=== PATIENT | female | born 1995 | race Caucasian/White ===

== ENCOUNTER 2017-06-02 07:24 | Emergency (ER) | payer BC ==
[2017-06-02 07:46] VITALS: BP 126/82
[2017-06-02] MEDS ORDERED: Acetaminophen TAB* 325 MG PO ONE (08:21)
[2017-06-02] MEDS ORDERED: Lidocaine 2% VISCOUS* 15 ML UDC PO ONE (08:21)
--- NOTE | 2017-06-02 08:28 | UC ---
Jose Mccarthy Jennifer, scribed for Yvonne Reza MD on 06/02/17 at 0806 . General HPI - HPI Summary HPI Summary: The patient is a 21 year old female who presents with mouth sores to her gums, lips, and tongue, fever, and ear pain that began in the past few days. The patient has been having respiratory issues and sore throat in the past week with a history of asthma. The patient reports that four days ago she was coughing so bad she couldnt breath and her chest felt tight. She visited [facility] and received oral dexamethasone, a nebulizer treatment, and 10 day course of augmentin. She felt better after the treatment but has had fevers as high as 102.8. She has been taking 600-800 mg of Ibuprofen every 4-6 hours for a few days but has been unable to get her temperature below 99 for more than 24 hours. No antipyretic today. Today, she states her chief complaint has been painful mouth sores all throughout her mouth and ear pain. Pt with a h/o cold sores. Pt states breathing and lungs feels better. The patient additionally complains of a decreased appetite. She last took augmentin today, Nyquil last night, and Flonase two times every day but not this morning. Patient's medications reviewed this visit. - History of Current Complaint Chief Complaint: GI Stated Complaint: FEVER MOUTH SORES CHILLS Time Seen by Provider: 06/02/17 07:32 Hx Obtained From: Patient Hx Last Menstrual Period: iud Onset/Duration: Sudden Onset, Lasting Weeks - one week, Still Present, Worse Since - 2-3 days Timing: Constant Onset Severity: Moderate Current Severity: Moderate Pain Intensity: 8 Associated Signs & Symptoms: Positive: Other - Mouth sores to gums, lips, tongue ; fever; ear pain; decreased appetite; cough - Allergy/Home Medications Allergies/Adverse Reactions: Allergies Allergy/AdvReac Type Severity Reaction Status Date / Time azithromycin [From Zithromax] Allergy Rash Verified 06/02/17 07:47 iodine Allergy Rash Verified 06/02/17 07:47 latex Allergy Rash Verified 06/02/17 07:47 Home Medications: Home Medications Albuterol 2.5MG/3ML (0.083%)* [Ventolin 2.5 MG/3 ML NEB.SUSIE*] 2.5 mg INH Q4H [History Confirmed 06/02/17] D-Methorphan/PE/Acetaminophen [Daytime Cold Multi-Symp Gelcap] 1 each PO [History] Dextromethorphn/Acetaminoph/Cp [Vicks Nyquil Cold & Flu N] 1 liq PO 06/02/17 [ History] PMH/Surg Hx/FS Hx/Imm Hx - Additional Past Medical History Additional PMH: Cold sores Previously Healthy: Yes - NEG: HTN, DM Respiratory History: Asthma - Surgical History Surgical History: Yes Surgery Procedure, Year, and Place: hand and knee - Family History Known Family History: Positive: Other - Ovarian CA, Breast CA - Social History 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 Lives: With Family Alcohol Use: Occasionally Substance Use Type: None Smoking Status (MU): Never Smoked Tobacco - Immunization History Most Recent Influenza Vaccination: 2012 Most Recent Tetanus Shot: 2006 Most Recent Pneumonia Vaccination: 1997 Review of Systems Constitutional: Fever ENT: Sore Throat, Ear Ache, Other - Mouth sores to gums, lips, and tongue Respiratory: Cough All Other Systems Reviewed And Are Negative: Yes Physical Exam Triage Information Reviewed: Yes Appearance: Well-Appearing, No Pain Distress, Well-Nourished Vital Signs: Initial Vital Signs Temp 100.9 F 06/02/17 07:37 Pulse 120 06/02/17 07:37 Resp 18 06/02/17 07:37 BP 126/82 06/02/17 07:37 Pulse Ox 98 06/02/17 07:37 Vital Signs Reviewed: Yes Eye Exam: Normal Eyes: Positive: Conjunctiva Clear ENT: Positive: Other - right TM + fluid, no erythema left TM wnl turbinates inflammed and boggy + PND no exudate, erythema uvula midline Pt with multiple ulcerative lesions on tongue, buccal membrane and under tongue. No lesions noted udner tongue or on palate Dental Exam: Normal Neck exam: Normal Neck: Positive: Supple, Nontender, No Lymphadenopathy Respiratory Exam: Normal Respiratory: Positive: Chest non-tender, Lungs clear, Normal breath sounds, No respiratory distress Cardiovascular Exam: Normal Cardiovascular: Positive: RRR, No Murmur, Pulses Normal Abdominal Exam: Normal Abdomen Description: Positive: Nontender, No Organomegaly, Soft Bowel Sounds: Positive: Present Musculoskeletal Exam: Normal Neurological Exam: Normal Neurological: Positive: Alert Psychological Exam: Normal Psychological: Positive: Normal Response To Family Skin Exam: Normal Course/Dx - Course Course Of Treatment: pt with 5 days progressive sinus congestion, cough, pnd and ear pain. pt with 3 days oral ulcer. Pt with low grade fever without antipyretic today. pt is on Amoxicillin and flonase. has nebulizer. secretion precaution. + improvement with viscous lidocaine. reviewed motrin/ apap. work note. hydrate. cold. secretion precaution. pt comfortable and in agreement with plan - Differential Dx - Multi-Symptom Provider Diagnoses: gingivostomatitis. serous otitis media Discharge - Discharge Plan Condition: Stable Disposition: HOME Prescriptions: Lidocaine 2% VISCOUS* [Xylocaine 2% Viscous*] 15 ml SWISH SPIT Q4H PRN #1 btl PRN Reason: mouth pain Patient Education Materials: Serous Otitis Media (ED), Gingivostomatitis (ED) Forms: *Work Release Referrals: [facility] [place] PHYSICIAN REFERRAL [Outside] No Primary Care Phys,NOPCP [Primary Care Provider] - Additional Instructions: - Stay well hydrated. Drink plenty of non-alcoholic, non-caffinated beverages. - Alternate ibuprofen (Advil, Motrin) 600mg and Tylenol 1000mg every 3 hours for pain or fever. Take with food. Do NOT take for more than 4-5 days. -cold foods (popsicle, jello, apple sauce) may be soothing to your throat - Okay to swish and spit numbing medication as prescribed - okay to gargle and spit with warm salt water, 2-3 times a day - Use you nebulizer or Albuterol every 6 hours today and tomorrow, then every 6 hours as needed - complete the course of antibiotics as prescribed until gone - These infections are spread by secretions - do NOT share eating or drinking utensils - clean items you share with other people such as cell phones, computer mouse, TV remote, computer tablets, etc. once your mouth wounds heal, change your toothbrush and your pillowcase. - use flonse nasal spray as prescribed - get plenty of restful sleep - humidify the air in the room where you sleep - boil water, run a hot steam shower, vaporizer, cups of water by heat register - okay to take over the counter decongestant and cough medication - claritin-D, Kellen-D, Gianni-D - contact your doctor, return here or go to the emergency department with questions or concerns. You have been given information for the the provider referral service. If you need a primary care provider, this office can assist you with establishing one. The documentation as recorded by the Jose díaz Jennifer accurately reflects the service I personally performed and the decisions made by me, Yvonne Reza MD.
== END 2017-06-02 08:47 | disposition home or self-care (01) ==
LOC: UCEAST 07:24
DX: K05.10 Chronic gingivitis, plaque induced (principal); H65.90 Unspecified nonsuppurative otitis media, unspecified ear; Z88.3 Allergy status to other anti-infective agents; Z88.8 Allergy status to other drugs, medicaments and biological substances
CPT/HCPCS: 99212; A9270-GY; G0463

== ENCOUNTER 2017-07-09 15:36 | Emergency (ER) | payer BC ==
[2017-07-09 15:52] VITALS: BP 112/65
--- NOTE | 2017-07-09 16:13 | UC ---
Throat Pain/Nasal Feliciano HPI - HPI Summary HPI Summary: Patient has 5 days of worsening sinus pain. She is long history of sinusitis she's been using her Flonase her second generation antihistamine decongestant and symptoms are getting worse. - History of Current Complaint Chief Complaint: UCGeneralIllness Stated Complaint: SINUS CONGESTION Time Seen by Provider: 07/09/17 15:59 Hx Obtained From: Patient Hx Last Menstrual Period: iud ?: No Onset/Duration: Sudden Onset, Lasting Days - 5 Severity: Severe Pain Intensity: 8 Pain Scale Used: 0-10 Numeric Cough: None Associated Signs & Symptoms: Positive: Sinus Discomfort - Allergies/Home Medications Allergies/Adverse Reactions: Allergies Allergy/AdvReac Type Severity Reaction Status Date / Time azithromycin [From Zithromax] Allergy Rash Verified 07/09/17 15:52 iodine Allergy Rash Verified 07/09/17 15:52 latex Allergy Rash Verified 07/09/17 15:52 PMH/Surg Hx/FS Hx/Imm Hx Previously Healthy: No Respiratory History: Asthma, Other Other Respiratory History: Sinusitis - Surgical History Surgical History: Yes Surgery Procedure, Year, and Place: hand and knee - Family History Known Family History: Positive: Other - Ovarian CA, Breast CA - Social History Occupation: Employed Full-time Lives: With Family Alcohol Use: Occasionally Substance Use Type: None Smoking Status (MU): Never Smoked Tobacco - Immunization History Most Recent Influenza Vaccination: 2012 Most Recent Tetanus Shot: 2006 Most Recent Pneumonia Vaccination: 1997 Review of Systems Constitutional: Chills, Fatigue Skin: Negative Eyes: Negative ENT: Sinus Congestion, Sinus Pain/Tenderness Respiratory: Negative Cardiovascular: Negative Gastrointestinal: Negative Genitourinary: Negative Motor: Negative Neurovascular: Negative Musculoskeletal: Negative Neurological: Headache Psychological: Negative Is Patient Immunocompromised?: No All Other Systems Reviewed And Are Negative: Yes Physical Exam Triage Information Reviewed: Yes Appearance: Well-Appearing, Well-Nourished, Pain Distress - mild Vital Signs: Initial Vital Signs Temp 97.9 F 07/09/17 15:48 Pulse 93 07/09/17 15:48 Resp 18 07/09/17 15:48 BP 112/65 07/09/17 15:48 Pulse Ox 100 07/09/17 15:48 Vital Signs Reviewed: Yes Eye Exam: Normal Eyes: Positive: Conjunctiva Clear ENT Exam: Normal ENT: Positive: Normal ENT inspection, Hearing grossly normal, Pharynx normal, Nasal congestion, TMs normal, Dental tenderness, Sinus tenderness, Uvula midline. Negative: Nasal drainage, Tonsillar swelling, Tonsillar exudate, Trismus, Muffled voice, Hoarse voice Dental Exam: Normal Neck exam: Normal Neck: Positive: Supple, Nontender Respiratory Exam: Normal Respiratory: Positive: Chest non-tender, Lungs clear, Normal breath sounds, No respiratory distress, No accessory muscle use Cardiovascular Exam: Normal Cardiovascular: Positive: RRR, No Murmur, Pulses Normal, Brisk Capillary Refill Musculoskeletal Exam: Normal Musculoskeletal: Positive: Strength Intact, ROM Intact, No Edema Neurological Exam: Normal Neurological: Positive: Alert, Muscle Tone Normal Psychological Exam: Normal Skin Exam: Normal Throat Pain/Nasal Course/Dx - Course Assessment/Plan: continue current treatments, add augmentin, probiotic follow with pcp/ent as planned - Differential Dx/Diagnosis Provider Diagnoses: acute rhinosinusitis Discharge - Sign-Out/Discharge Documenting (check all that apply): Discharge - Discharge Plan Condition: Stable Disposition: HOME Prescriptions: Amoxicillin/Clavulanate TAB* [Augmentin TAB 875*] 875 mg PO BID #20 tab Fluconazole 150 MG (NF) [Diflucan 150 mg (NF)] 150 mg PO ONCE #2 tab Patient Education Materials: Probiotic (By mouth), Sinusitis (ED) Referrals: Denia Holbrook MD [Primary Care Provider] - If Needed Additional Instructions: Follow with ear,nose and throat doctor as planned - Billing Disposition and Condition Condition: STABLE Disposition: HOME
== END 2017-07-09 16:19 | disposition home or self-care (01) ==
LOC: UCEAST 15:36
DX: J01.90 Acute sinusitis, unspecified (principal); J45.909 Unspecified asthma, uncomplicated; Z88.1 Allergy status to other antibiotic agents; Z88.3 Allergy status to other anti-infective agents; Z91.040 Latex allergy status
CPT/HCPCS: 99212; G0463

== ENCOUNTER 2017-10-04 13:53 | Emergency (ER) | payer BC ==
[2017-10-04 13:58] VITALS: BP 115/65
--- NOTE | 2017-10-04 14:02 | UC ---
Complaint Female HPI - HPI Summary HPI Summary: 22 yo female presents with increased urination and suprapubic discomfort for the last 24 hours. She tells me that she has a history of chronic UTIs and yeast infections. This feels the same as her usual UTIs, but the increased urination is new for her. She says that last night she noticed herself urinating more and this morning only had 1 bottle of water to drink, but urinated a large amount 12 times before noon. Denies fever, chills, abdominal pain, n/v/d/c, flank pain, hematuria, vaginal odor or discharge. She has an IUD in place for over a year. - History Of Current Complaint Chief Complaint: UCGU Stated Complaint: URINARY COMPLAINT Time Seen by Provider: 10/04/17 14:02 Hx Obtained From: Patient Hx Last Menstrual Period: iud Onset/Duration: Sudden Onset Severity Currently: None Pain Intensity: 0 - Allergies/Home Medications Allergies/Adverse Reactions: Allergies Allergy/AdvReac Type Severity Reaction Status Date / Time azithromycin [From Zithromax] Allergy Rash Verified 10/04/17 13:58 iodine Allergy Rash Verified 10/04/17 13:58 latex Allergy Rash Verified 10/04/17 13:58 PMH/Surg Hx/FS Hx/Imm Hx Previously Healthy: Yes Respiratory History: Asthma - Surgical History Surgical History: Yes Surgery Procedure, Year, and Place: hand and knee - Family History Known Family History: Positive: Other - Ovarian CA, Breast CA - Social History Occupation: Employed Full-time Lives: With Family Alcohol Use: Occasionally Substance Use Type: None Smoking Status (MU): Never Smoked Tobacco - Immunization History Most Recent Influenza Vaccination: 2012 Most Recent Tetanus Shot: 2006 Most Recent Pneumonia Vaccination: 1997 Review of Systems Constitutional: Negative Skin: Negative Respiratory: Negative Cardiovascular: Negative Gastrointestinal: Negative Genitourinary: Frequency Musculoskeletal: Negative Neurological: Negative Psychological: Negative All Other Systems Reviewed And Are Negative: Yes Physical Exam - Summary Physical Exam Summary: GENERAL: NAD. WDWN. No pain distress. SKIN: No rashes, sores, lesions, or open wounds. NECK: Supple. Nontender. No lymphadenopathy. CHEST: CTAB. No r/r/w. No accessory muscle use. Breathing comfortably and in no distress. CV: RRR. Without m/r/g. Pulses intact. Brisk cap refill. ABDOMEN: Soft. NTTP. No distention or guarding. No organomegaly. No CVA tenderness. Bowel sounds present NEURO: Alert. CN II-XII grossly intact. PSYCH: Age appropriate behavior. Triage Information Reviewed: Yes Vital Signs: Initial Vital Signs Temp 99 F 10/04/17 13:55 Pulse 88 10/04/17 13:55 Resp 15 10/04/17 13:55 BP 115/65 10/04/17 13:55 Pulse Ox 100 10/04/17 13:55 Laboratory Tests 10/04/17 10/04/17 14:07 14:27 POC Urine Color Yellow POC Urine Clarity Clear POC Urine pH 6.0 POC Ur Specif Adams 1.020 POC Urine Protein Negative POC Ur Glucose (UA) Negative POC Urine Ketones Trace A POC Urine Blood Trace-intact A POC Urine Nitrite Negative POC Urine Bilirubin Negative POC Urine Urobilinogen 0.2 POC U Leukocyte Esteras Negative POC Ur Test Negative Complaint Female Dx - Course Course Of Treatment: I had a long discussion with the pt regarding her symptoms. She declined pelvic exam as she feels her symptoms are related to a UTI. Her POC glucose was 128. I will treat her for a UTI and send her urine for culture and draw for CBC and BMP to assess her sodium and electrolyte levels. Low suspicion for Diabetes insipidus or other salt wasting process at this time , however, I strongly advised her to f/u with her PCP as soon as possible. - Differential Dx/Diagnosis Provider Diagnoses: Urinary frequency Discharge - Sign-Out/Discharge Documenting (check all that apply): Patient Departure - Discharge Plan Condition: Stable Disposition: HOME Prescriptions: Cephalexin CAP* [Keflex CAP*] 500 mg PO BID #10 cap Patient Education Materials: Urinary Tract Infection in Women (DC) Forms: *Work Release Referrals: Denia Holbrook MD [Primary Care Provider] - If Needed Additional Instructions: If you develop a fever, shortness of breath, chest pain, new or worsening symptoms - please call your PCP or go to the ED. 1) Please schedule a follow up with your Primary Doctor if your symptoms do not improve - Billing Disposition and Condition Condition: STABLE Disposition: Home
[2017-10-04 18:50] LABS: ABS Basophils 0 10^3/ul (0-0.2); ABS Eosinophils 0 10^3/ul (0-0.6); ABS Lymphocytes 2.6 10^3/ul (1.0-4.8); ABS Monocytes 0.6 10^3/ul (0-0.8); ABS Neutrophils 3.3 10^3/ul (1.5-7.7); ABS Nucleated RBC 0 10^3/ul; Eosinophil % 0.3 % (0-6); Hematocrit 39 % (35-47); Lymphocyte % 40.3 % (25-47); Mean Corpuscular HGB Conc 34 g/dl (31-36); Mean Corpuscular Hemoglobin 30 pg (27-31); Mean Corpuscular Volume 90 fL (80-97); Mean Platelet Volume 8.5 um3 (7.4-10.4); Nucleated Red Blood Cells % 0; Platelet Count 343 10^3/ul (150-450); Red Cell Distribution Width 13 % (10.5-15); White Blood Count 6.5 10^3/ul (3.5-10.8)
[2017-10-04 19:10] LABS: EGFR Non-African American 101.3 (>60)
--- NOTE | 2017-10-05 08:12 | UC ---
- Progress Note Progress Note: RN to call pt. Non-immediately emergent, but recommend F/u PCP as advised "as soon as possible." K+ 3,4 (slightly low), glucose 103mg / dl. Monocyte 8.8. Seek medical attention for worse or new problems. Discharge - Sign-Out/Discharge Documenting (check all that apply): Post-Discharge Follow Up - Discharge Plan Condition: Stable Disposition: HOME Prescriptions: Cephalexin CAP* [Keflex CAP*] 500 mg PO BID #10 cap Patient Education Materials: Urinary Tract Infection in Women (DC) Forms: *Work Release Referrals: Denia Holbrook MD [Primary Care Provider] - If Needed Additional Instructions: If you develop a fever, shortness of breath, chest pain, new or worsening symptoms - please call your PCP or go to the ED. 1) Please schedule a follow up with your Primary Doctor if your symptoms do not improve - Billing Disposition and Condition Condition: STABLE Disposition: Home
== END 2017-10-04 14:57 | disposition home or self-care (01) ==
LOC: UCEAST 13:53
DX: R35.0 Frequency of micturition (principal); Z87.440 Personal history of urinary (tract) infections; J45.909 Unspecified asthma, uncomplicated; Z88.1 Allergy status to other antibiotic agents; Z88.3 Allergy status to other anti-infective agents; Z91.040 Latex allergy status; Z80.41 Family history of malignant neoplasm of ovary; Z80.3 Family history of malignant neoplasm of breast
CPT/HCPCS: 36415; 80048; 81003; 84702; 85025; 99212; G0463

== ENCOUNTER 2017-10-11 19:05 | Emergency (ER) | payer BC ==
[2017-10-11 20:21] LABS: ABS Basophils 0 10^3/ul (0-0.2); ABS Eosinophils 0 10^3/ul (0-0.6); ABS Lymphocytes 2.7 10^3/ul (1.0-4.8); ABS Monocytes 0.8 10^3/ul (0-0.8); ABS Neutrophils 4.6 10^3/ul (1.5-7.7); ABS Nucleated RBC 0 10^3/ul; Eosinophil % 0.5 % (0-6); Hematocrit 41 % (35-47); Mean Corpuscular HGB Conc 34 g/dl (31-36); Mean Corpuscular Hemoglobin 31 pg (27-31); Mean Corpuscular Volume 89 fL (80-97); Mean Platelet Volume 7.7 um3 (7.4-10.4); Nucleated Red Blood Cells % 0.1; Platelet Count 350 10^3/ul (150-450); Red Blood Count 4.56 10^6/ul (4.00-5.40); Red Cell Distribution Width 13 % (10.5-15); White Blood Count 8.2 10^3/ul (3.5-10.8)
[2017-10-11 20:39] LABS: EGFR Non-African American 64.1 (>60)
[2017-10-11 21:31] LABS: Urine Appearance Cloudy; Urine Blood 1+ (Negative); Urine Color Straw; Urine Ketones Negative (Negative); Urine Protein Negative (Negative); Urine Red Blood Cell Trace(0-2/hpf) (Absent); Urine Specific Gravity 1.008 (1.010-1.030); Urine Urobilinogen Negative (Negative); Urine White Blood Cell Trace(0-5/hpf) (Absent)
--- NOTE | 2017-10-11 22:55 | ED ---
GI/ HPI - HPI Summary HPI Summary: 22-year-old female presents with abdominal pain for the past week. She states it has an IUD in place and believes pain is from such although has had iud for past year She has pain in suparpubic region. She has history of ovarian cysts. States it feels similar. She ultrasound on Wednesday but they never called with results from [facility]. She states that she was given antibiotics for a UTI even though her urine did not show UTI. She did not take antibiotics. She denies any flank pain. No nausea or vomiting. No fevers. No diarrhea constipation. She admits to abnormal vaginal discharge but is not itchy. She denies any history of STDs. - History of Current Complaint Chief Complaint: EDAbdPain Time Seen by Provider: 10/11/17 20:10 Stated Complaint: ABD PAIN Hx Last Menstrual Period: iud Pain Intensity: 8 - Allergy/Home Medications Allergies/Adverse Reactions: Allergies Allergy/AdvReac Type Severity Reaction Status Date / Time azithromycin [From Zithromax] Allergy Rash Verified 10/11/17 19:16 iodine Allergy Rash Verified 10/11/17 19:16 latex Allergy Rash Verified 10/11/17 19:16 Home Medications: Home Medications Albuterol inh POWDER (NF) [Proair Respiclick] 1 puff INH Q4HR PRN 10/11/17 [ History Confirmed 10/11/17] Fluticasone HFA 110 mcg(NF) [Flovent HFA 110 mcg(NF)] 2 puff INH BID 10/11/17 [ History Confirmed 10/11/17] PMH/Surg Hx/FS Hx/Imm Hx Endocrine/Hematology History: Denies: Hx Diabetes Cardiovascular History: Denies: Hx Congestive Heart Failure, Hx Hypertension Respiratory History: Reports: Hx Asthma - EXERCISE INDUCED History: Denies: Hx Renal Disease Musculoskeletal History: Reports: Hx Orthopedic Injury - broken fibula, fingers , toe Sensory History: Reports: Hx Vision Problem - driving glasses Opthamlomology History: Reports: Hx Vision Problem - driving glasses Psychiatric History: Reports: Hx Depression - Surgical History Surgery Procedure, Year, and Place: hand and knee - Immunization History Date of Tetanus Vaccine: Up to date Date of Influenza Vaccine: Fall 2012 Infectious Disease History: No Infectious Disease History: Denies: Traveled Outside the [place] in Last 30 Days - Family History Known Family History: Positive: Other - Ovarian CA, Breast CA - Social History Alcohol Use: Rare Substance Use Type: Reports: None Smoking Status (MU): Never Smoked Tobacco Review of Systems Negative: Fever Negative: Chest Pain Negative: Shortness Of Breath Positive: Abdominal Pain. Negative: Vomiting, Diarrhea, Nausea All Other Systems Reviewed And Are Negative: Yes Physical Exam Triage Information Reviewed: Yes Vital Signs On Initial Exam: Initial Vitals Temp Pulse Resp BP Pulse Ox 99.8 F 96 16 155/100 100 10/11/17 19:07 10/11/17 19:07 10/11/17 19:07 10/11/17 19:07 10/11/17 19:07 Vital Signs Reviewed: Yes Appearance: Positive: Well-Appearing Skin: Positive: Warm, Dry Head/Face: Positive: Normal Head/Face Inspection Eyes: Positive: Normal, Conjunctiva Clear ENT: Positive: Pharynx normal Respiratory/Lung Sounds: Positive: Clear to Auscultation, Breath Sounds Present Cardiovascular: Positive: Normal, RRR Abdomen Description: Positive: Soft, Other: - suprapubic tenderness, tenderness RLQ, neg obturator, Bowel Sounds: Positive: Present Pelvic Exam: Positive: Bimanual Exam Normal, No Cerv. Motion Tender, Discharge, Tender Adnexa - right Musculoskeletal: Positive: Normal Neurological: Positive: Normal Psychiatric: Positive: Normal Diagnostics - Vital Signs Vital Signs Temp Pulse Resp BP Pulse Ox 10/11/17 19:07 99.8 F 96 16 155/100 100 - Laboratory Lab Results: Lab Results 10/11/17 10/11/17 10/11/17 Range/Units 20:15 20:15 20:55 WBC 8.2 (3.5-10.8) 10^3/ul RBC 4.56 (4.00-5.40) 10^6/ul Hgb 14.0 (12.0-16.0) g/dl Hct 41 (35-47) % MCV 89 (80-97) fL MCH 31 (27-31) pg MCHC 34 (31-36) g/dl RDW 13 (10.5-15) % Plt Count 350 (150-450) 10^3/ul MPV 7.7 (7.4-10.4) um3 Neut % (Auto) 56.6 (38-83) % Lymph % (Auto) 33.0 (25-47) % Kershaw % (Auto) 9.4 H (0-7) % Eos % (Auto) 0.5 (0-6) % Baso % (Auto) 0.5 (0-2) % Absolute Neuts (auto) 4.6 (1.5-7.7) 10^3/ul Absolute Lymphs (auto) 2.7 (1.0-4.8) 10^3/ul Absolute Monos (auto) 0.8 (0-0.8) 10^3/ul Absolute Eos (auto) 0 (0-0.6) 10^3/ul Absolute Basos (auto) 0 (0-0.2) 10^3/ul Absolute Nucleated RBC 0 10^3/ul Nucleated RBC % 0.1 Sodium 135 (135-145) mmol/L Potassium 3.9 (3.5-5.0) mmol/L Chloride 102 (101-111) mmol/L Carbon Dioxide 24 (22-32) mmol/L Anion Gap 9 (2-11) mmol/L BUN 13 (6-24) mg/dL Creatinine 1.07 H (0.51-0.95) mg/dL Est GFR ( Amer) 77.6 (>60) Est GFR (Non-Af Amer) 64.1 (>60) BUN/Creatinine Ratio 12.1 (8-20) Glucose 94 (70-100) mg/dL Calcium 9.4 (8.6-10.3) mg/dL Total Bilirubin 0.40 (0.2-1.0) mg/dL AST 12 L (13-39) U/L ALT 7 (7-52) U/L Alkaline Phosphatase 56 (34-104) U/L C-Reactive Protein < 1.00 (<8.01) mg/L Total Protein 7.0 (6.4-8.9) g/dL Albumin 4.4 (3.2-5.2) g/dL Globulin 2.6 (2-4) g/dL Albumin/Globulin Ratio 1.7 (1-3) Lipase 41 (11.0-82.0) U/L Beta HCG, Quant < 0.60 mIU/mL Urine Color Straw Urine Appearance Cloudy Urine pH 8.0 (5-9) Ur Specific Humphrey 1.008 L (1.010-1.030) Urine Protein Negative (Negative) Urine Ketones Negative (Negative) Urine Blood 1+ A (Negative) Urine Nitrate Negative (Negative) Urine Bilirubin Negative (Negative) Urine Urobilinogen Negative (Negative) Ur Leukocyte Esterase Negative (Negative) Urine WBC (Auto) Trace(0-5/hpf) (Absent) Urine RBC (Auto) Trace(0-2/hpf) (Absent) Ur Squamous Epith Cells Present A (Absent) Urine Bacteria Absent (Absent) Urine Glucose Negative (Negative) Result Diagrams: 10/11/17 20:15 10/11/17 20:15 Lab Statement: Any lab studies that have been ordered have been reviewed, and results considered in the medical decision making process. - Ultrasound No standard instances Ultrasound Interpretation: No Acute Changes Ultrasound Interpretation Completed By: Radiologist MIRIAM Course/Dx - Course Course Of Treatment: 22-year-old female presents with abdominal pain for the past week. She states it has an IUD in place and believes pain is from such although has had iud for past year She has pain in suparpubic region. She has history of ovarian cysts. States it feels similar. She ultrasound on Wednesday but they never called with results from [facility]. She states that she was given antibiotics for a UTI even though her urine did not show UTI. She did not take antibiotics. She denies any flank pain. No nausea or vomiting. No fevers. No diarrhea constipation. She admits to abnormal vaginal discharge but is not itchy. She denies any history of STDs. on exam has tenderness suprapubic. vaginal exam tenderness right adenexa. has vaginal discharge present but will wait for cultures for potential treatment. u/s normal. labs wnl. will have follow up with [facility]. patient understand and agrees with plan. - Diagnoses Differential Diagnoses - Female: Ovarian Cyst, STD, Urinary Tract Infection Provider Diagnoses: Abdominal pain Discharge - Sign-Out/Discharge Documenting (check all that apply): Patient Departure - Discharge Plan Condition: Good Disposition: HOME Patient Education Materials: Abdominal Pain (ED) Referrals: Denia Holbrook MD [Primary Care Provider] - Additional Instructions: Follow up with [facility] Take ibuprofen or Tylenol for pain as needed every 6 hours Return to ED if develop any new or worsening symptoms. - Billing Disposition and Condition Condition: GOOD Disposition: Home
[2017-10-11 23:26] VITALS: BP 118/75
--- NOTE | 2017-10-12 07:41 | RAD ---
INDICATION: Right lower quadrant pain COMPARISON: None TECHNIQUE: Longitudinal and transverse transvaginal scans of the pelvis were obtained. FINDINGS: Uterus: The uterus is normal in size. There are no focal masses. The uterus measures 7.3 x 4.2 x 4.2 cm. Endometrial thickness: The endometrial thickness is measured at 0.3 cm. There is an IUD in expected position. Free fluid: There is trace free fluid in the cul-de-sac . Ovaries: The ovaries are normal in size. The right ovary measures 4.0 x 2.3 x 2.2 cm. The left ovary measures 2.6 x 1.8 x 1.9 cm. . Doppler interrogation demonstrates flow to each ovary. Other: None IMPRESSION: NORMAL STUDY. IUD IN EXPECTED POSITION.
--- NOTE | 2017-10-13 09:09 | PN ---
Progress Note - Progress Note Date of Service: 10/11/17 Note: Pt. seen in Er 10/11/17 for vaginal discharge. GC/chlamydia are negative. Vaginal culture today is growing gardnerella. I called and spoke with pt. today around 0900 and informed her of results. Rx for flagyl sent to pharmacy. 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 Pt. understands and agrees with plan.
--- NOTE | 2017-10-15 17:32 | PN ---
Progress Note - Progress Note Date of Service: 10/11/17 Note: Pt. seen in ER for 10/11/17 for abd. pain. Urine culture today is growing 50-75K e. coli. I called and spoke with pt. to day around 1720 and discussed culture. Pt. states that she is having urinary symptoms of dysuria and frequency. Pt. states she was seen in [facility] 10/04 for urinary symptoms and was rx an antibx. Pt. states she picked up antibx but did not start it bc her culture came back negative. I called and spoke with pharmacist at [facility] and she verified rx for keflex 500mg BID x 5 days. Will extend treatment to 10 days. Verbal order given for an additional 5 days. Pt. will start keflex tonight when she finishes work. To continue recent rx flagyl as well. Pt. understands and agrees with plan.
== END 2017-10-11 23:25 | disposition home or self-care (01) ==
LOC: ED 19:05
DX: R10.31 Right lower quadrant pain (principal); Z97.5 Presence of (intrauterine) contraceptive device; Z88.3 Allergy status to other anti-infective agents; Z88.8 Allergy status to other drugs, medicaments and biological substances
CPT/HCPCS: 36415; 76830; 80053; 81003; 81015; 83690; 84702; 85025; 86140; 87077; 87086; 87186; 87480; 87491; 87510; 87591; 87661; 99283

== ENCOUNTER 2018-04-07 11:18 | Emergency (ER) | payer BC ==
--- OUTSIDE RECORDS SUMMARY | 2018-04-07 11:23 | XMS REPORT | Continuity of Care Document ---
:1995 External Reference #:[id number] Author Name Aida Santana CNM Address [address] [place] [address] Care Team Providers Name Role Phone Denia Holbrook MD Primary Care Physician Unavailable Payers Type Date Identification Numbers Payment Provider Subscriber Policy Number: [id number] [facility] Beatriz Sullivan PayID: [id number] [address] [address] [place] [address] Advance Directives Description No Information Available Problems Date Description Provider Status Onset: 08/10/2017 Asthma Aida Santana CNM Active Onset: 08/10/2017 IUD contraception Aida Santana CNM Resolved Resolved: 04/05/2018 Family History Date Family Member(s) Problem(s) Comments Father A&W Mother Ovarian Cysts Siblings 1 First Brother A&W Paternal Grandfather due to PA () Paternal Grandmother due to Ovarian Cancer () - post menopause Paternal Grandmother due to Cervical () - dx'd post Cancer menopause Maternal Grandfather Unknown Maternal Grandmother Breast Cancer Paternal Aunts Breast Cancer +BRCA gene carrier Social History Type Date Description Comments Sex Unknown Education Highest level completed, Associates Degree Marital Status Single Lives With Alone (boyfriend there most nights) Pets 1 dog 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, [employer] Environmental Hazards Not exposed to any environmental hazards Environmental Hazards Low Lead Risk Tobacco Use Start: Unknown Never Smoked Cigarettes ETOH Use Rarely consumes alcohol 0-1 times per week Recreational Drug Use Denies Drug Use Tobacco Use Start: Unknown Patient has never smoked Exercise Type/Frequency Exercises regularly Seat Belt/Car Seat Always uses seat belt Currently Active Patient is currently sexually active Condom Use Occasionally latex free condoms Contraceptive Methods Current methods include levonorgestrel IUD STD's HPV, High Risk Allergies, Adverse Reactions, Alerts Date Description Reaction Status Severity Comments 08/10/2017 Zithromax Rash Active Moderate 08/10/2017 Iodine itching and blistering/burning Active Severe 08/10/2017 Latex Rash and sometimes SOB Active Severe Medications Medication Date Status Form Strength Qnty SIG Indications Ordering Provider Fish Oil / Active Capsules 1000mg Unknown 0000 Flax Seed / Active Capsules 1300mg Unknown Oil 0000 Vitamin C / Active Capsules 500mg Unknown 0000 Echinacea / Active Capsules 80mg Unknown 0000 Krill Oil / Active Capsules 300mg Only when Unknown 0000 fish oil/flax seed oil unavailable Restasis / Active Emulsion 0.05% Unknown 0000 Flonase / Active Suspension 50mcg/Act Unknown Allergy 0000 Relief Flovent HFA / Active Aerosol 110mcg/Act Unknown 0000 Ventolin HFA / Active Aerosol 108(90Base inhale 2 Unknown 0000 ) mcg/Act puffs by mouth every 4 to 6 hours as needed Kyleena / Hx IUD 19.5mg Placed 06/2016 Unknown 0000 - 2018 Medications Administered in Office Medication Date Status Form Strength Qnty SIG Indications Ordering Provider PT SCRN Tbco Administered Injection Mahrimena Id as Non User 018 TAYLOR Santana Immunizations Description No Information Available Vital Signs Date Vital Result Comment 04/05/2018 2:11pm BP Systolic 104 mmHg BP Diastolic 66 mmHg Height 62.5 inches 5'2.50" Weight 119.00 lb BMI (Body Mass Index) 21.4 kg/m2 Last Menstrual Period [id number] 0 Parity 0 08/10/2017 9:25am BP Systolic 120 mmHg BP Diastolic 72 mmHg Height 62.5 inches 5'2.50" Weight 123.00 lb BMI (Body Mass Index) 22.1 kg/m2 Last Menstrual Period [id number] 0 Parity 0 Results Test Date Facility Test Result H/L Range Note Laboratory test [facility] Cytology SEE RESULT [address] [place] [address] BELOW [phone] GC/Chlamydia Dna [facility] Chlamydia Negative Negative Probe [address] [place] [address] trachomatis Rna [phone] Neisseria gonorrhoeae (GC) Rna Negative Negative 1 SEE RESULT BELOW Name: ALE SULLIVAN : [address]: Aida Santana [facility] Acct: [id number] Unit: [id number] AGE: 21 Location: [facility] Re08/10/17 SEX: F Status: REG REF SPEC: [id number] ELIE: 08/10/17-[address]: Aida Santana [facility] REQ: [id number] RECD: 08/10/17 STATUS: SOUT _ ORDERED: TP IMAGE ANALYS COMMENTS: [id number] Negative for Intraepithelial lesion or Malignancy A. Ectocervical/Endocervical Specimen Adequacy: Satisfactory of evaluation Transformation zone component identified Patient Information: HPV: Thin Layer Pap Test w/reflex to high risk HPV RNA testing when ASCUS Actual Specimen Date: 08/10/17 Last Menstrual Date: 08/01/17 Spec Date if unknown: unknown ?: N Post Menopausal?: N Hysterectomy?: N Previous Abnormal Pap Smears?:N Signed by and Reported on: SILVIO Rothman (ASCP) [id number] This Pap test was evaluated with the assistance of the Dealisedp Test Imaging System. Due to cytologic findings at the motor and chassis inspector microscope, comprehensive manual rescreening by a Resource Director may be required. The Pap Smear is a screening test designed to aid in the detection of premalignant and malignant conditions of the uterine cervix. It is not a diagnostic procedure and should not be used as the sole means of detecting cervical cancer. Both false- positive and false- negative reports do occur. Depending on your risk status, a Pap smear should be obtained and evaluated every 1-3 years. END OF REPORT DEPARTMENT OF PATHOLOGY, [address] [place] [address] Zane Cheng M.D. Director [facility] # [id number] Procedures Date Code Description Status 04/05/2018 19107 Removal, Non-Biodegradable Drug Delivery Implant Completed Encounters Type Date Location Provider Dx Diagnosis Office Visit 08/10/2017 [facility] Aida Santana CNM Z01.419 Encntr for town marshal exam 9:40a (general) (routine) w/o abn findings Z30.431 Encounter for routine checking of intrauterine contracep dev Plan of Treatment No Information Available
[2018-04-07 11:28] VITALS: BP 109/66
--- NOTE | 2018-04-07 11:41 | UC ---
Respiratory Complaint HPI - HPI Summary HPI Summary: 22 with asthma and cough; completed round of medication 9 days ago; doxycycline for 5 days. [place] better then last 3 days worse. Temp to 102.4 2 nights ago. Temp 99 now. Feels "tight" in throat. Last used nebulizer at home 36 hours ago. Today at work SOB; frequent cough. Needs MD note to return to work. MD note: VSS; temp 99. nurse's note: hive like rash on trunk, lower back, forearms, and ankles. Excoriated from itching. Hard to tell if there are an localized lesions. No rash between fingers. - History of Current Complaint Chief Complaint: UCRespiratory Stated Complaint: RESP COMPLAINT Time Seen by Provider: 04/07/18 11:23 Hx Last Menstrual Period: IUD, was removed 2 days ago Pain Intensity: 8 - Allergies/Home Medications Allergies/Adverse Reactions: Allergies Allergy/AdvReac Type Severity Reaction Status Date / Time azithromycin [From Zithromax] Allergy Rash Verified 04/07/18 11:28 iodine Allergy Rash Verified 04/07/18 11:28 latex Allergy Rash Verified 04/07/18 11:28 Home Medications: Home Medications Albuterol 2.5MG/3ML (0.083%)* [Ventolin 2.5 MG/3 ML NEB.SUSIE*] 2.5 mg INH Q4H PRN 04/07/18 [History Confirmed 04/07/18] PMH/Surg Hx/FS Hx/Imm Hx Previously Healthy: Yes Respiratory History: Asthma - has home nebulizer; has been on steroids in the past; taking Flovent. - Surgical History Surgical History: Yes Surgery Procedure, Year, and Place: hand and knee - Family History Known Family History: Positive: Other - Ovarian CA, Breast CA - Social History Occupation: Employed Full-time - [employer] Alcohol Use: Rare Substance Use Type: None Smoking Status (MU): Never Smoked Tobacco - Immunization History Most Recent Influenza Vaccination: 2012 Most Recent Tetanus Shot: 2006 Most Recent Pneumonia Vaccination: 1997 Review of Systems All Other Systems Reviewed And Are Negative: Yes Constitutional: Positive: Negative Skin: Positive: Negative Eyes: Positive: Negative ENT: Positive: Negative Respiratory: Positive: Shortness Of Breath, Cough, Other - feeling of tightness mid chest. Cardiovascular: Positive: Negative Gastrointestinal: Positive: Negative Genitourinary: Positive: Negative Motor: Positive: Negative Neurovascular: Positive: Negative Musculoskeletal: Positive: Negative Neurological: Positive: Negative Psychological: Positive: Negative Is Patient Immunocompromised?: No Physical Exam Triage Information Reviewed: Yes Appearance: Well-Appearing Vital Signs: Initial Vital Signs Temp 99.0 F 04/07/18 11:21 Pulse 77 04/07/18 11:21 Resp 16 04/07/18 11:21 BP 109/66 04/07/18 11:21 Pulse Ox 100 04/07/18 11:21 Vital Signs Reviewed: Yes Eye Exam: Normal ENT Exam: Normal Dental Exam: Normal Neck exam: Normal Neck: Positive: 1 Respiratory: Positive: Chest non-tender, No accessory muscle use, Decreased breath sounds - bilateral, Wheezing, Expiration - extended. Negative: Accessory muscle use Cardiovascular Exam: Normal Abdominal Exam: Normal Musculoskeletal Exam: Normal Neurological Exam: Normal Psychological Exam: Normal Skin Exam: Normal UC Diagnostic Evaluation - Laboratory O2 Sat by Pulse Oximetry: 100 Respiratory Course/Dx - Course Course Of Treatment: 22 with asthma and cough; completed round of medication 9 days ago; doxycycline for 5 days. [place] better then last 3 days worse. Temp to 102.4 2 nights ago. Temp 99 now. Feels "tight" in throat. Last used nebulizer at home 36 hours ago. Today at work SOB; frequent cough. Needs MD note to return to work. Physical examination shows decreased air exchange. Nebulizer given.12:10 re-examined: feels more comfortable. Improved air exchange. She will use her albuterol inhaler and spacer and take prednisone for the next three days. Patient knows to go to ED for shortness of breath. Diagnosis is bronchitis with bronchospasm. - Differential Dx/Diagnosis Differential Diagnosis/HQI/PQRI: Asthma, Bronchitis, Lower Resp Infection Provider Diagnosis: Bronchitis, Bronchospasm Discharge - Sign-Out/Discharge Documenting (check all that apply): Patient Departure All imaging exams completed and their final reports reviewed: No Studies - Discharge Plan Condition: Stable Disposition: HOME Prescriptions: DOXYcycline CAP(*) [DOXYcycline 100MG CAP(*)] 100 mg PO BID #14 cap predniSONE [Prednisone 20 MG TAB] 20 mg PO BID #6 tab MDD 2 Patient Education Materials: Acute Bronchitis (ED), Bronchospasm (ED) Forms: *Work Release Referrals: Denia Holbrook MD [Primary Care Provider] - Additional Instructions: WE DISCUSSED: I think you're worsening condition is mostly due to asthma. He will probably have a viral bronchitis and your lungs are reacting to that causing bronchospasm. I recommend that you use your albuterol inhaler with spacer or your home nebulizer 4 times a day for the next 2-3 days and take prednisone which I will prescribe for you. I will also prescribe 5 days of doxycycline, but as we discussed, don't start this unless U spike a temperature or develop chest pain. If you need to take this you should be rechecked. I've given you a back to work note for tomorrow. Go to the emergency Department for any increasing shortness of breath or difficulty breathing. - Billing Disposition and Condition Condition: STABLE Disposition: Home
[2018-04-07] MEDS: Albuterol/Ipratropium NEB.SOL* Albuterol 2.5 MG/Ipratropium 0.5 MG 3 ML INH ONE (11:49)
== END 2018-04-07 12:29 | disposition home or self-care (01) ==
LOC: UCEAST 11:18
DX: J20.9 Acute bronchitis, unspecified (principal); Z91.041 Radiographic dye allergy status; J45.909 Unspecified asthma, uncomplicated; Z88.1 Allergy status to other antibiotic agents
CPT/HCPCS: 99212; A9270-GY; G0463

== ENCOUNTER 2018-04-28 10:06 | Emergency (ER) | payer BC, OTHER ==
[2018-04-28 11:02] VITALS: BP 113/61
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
== END 2018-04-28 12:45 | disposition home or self-care (01) ==
LOC: UCEAST 10:06
DX: S43.402A Unspecified sprain of left shoulder joint, initial encounter (principal); S46.912A Strain of unspecified muscle, fascia and tendon at shoulder and upper arm level, left arm, initial encounter; S40.012A Contusion of left shoulder, initial encounter; S50.812A Abrasion of left forearm, initial encounter; S00.81XA Abrasion of other part of head, initial encounter; S03.8XXA Sprain of joints and ligaments of other parts of head, initial encounter; R68.84 Jaw pain; J45.909 Unspecified asthma, uncomplicated; Z88.0 Allergy status to penicillin; Z88.8 Allergy status to other drugs, medicaments and biological substances; Z91.040 Latex allergy status; V49.9XXA Car occupant (driver) (passenger) injured in unspecified traffic accident, initial encounter; Y92.9 Unspecified place or not applicable
CPT/HCPCS: 70110; 71046; 81003; 99212; G0463

== ENCOUNTER 2019-01-09 08:44 | Emergency (ER) | payer BC ==
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
--- OUTSIDE RECORDS SUMMARY | 2019-01-09 08:50 | XMS REPORT | Summary of Care ---
:1995 Author Organization [facility] Address [address] [place] [address] Care Team Providers Name Role Phone Denia Holbrook MD Primary Care Provider Reason for Visit Reason Comments Shoulder Pain left Encounter Details Date Type Department Care Team Description 11/17/2018 Office Visit [facility] - Shila Valles, Left anterior shoulder pain (Primary Dx); [facility] Rotator cuff tendinitis, left Therapy [address] [place] [address] [address] [phone] [phone] Allergies Active Allergy Reactions Severity Noted Date Comments Cadexomer Iodine Dermatologic Reaction 05/24/2015 blister Latex Rash Medium 05/24/2015 Azithromycin Dihydrate Swelling High 03/01/2015 Throat swells documented as of this encounter (statuses as of 11/17/2018) Medications Medication Sig Dispensed Refills Start Date End Date Status fluticasone (FLONASE) [place] 2 Sprays in 0 Active 50 MCG/ACT [...] as of this encounter (statuses as of 11/17/2018) Active Problems Problem Noted Date Rotator cuff tendinitis, left 08/30/2018 Left anterior shoulder pain 05/05/2018 IUD (intrauterine device) in place 06/29/2017 History of anemia 06/29/2017 S/P left knee arthroscopy 07/05/2015 documented as of this encounter (statuses as of 11/17/2018) Resolved Problems Problem Noted Date Resolved Date Synovitis 04/30/2015 06/29/2017 Bone bruise 03/19/2015 06/29/2017 Arthralgia of left knee 03/01/2015 06/29/2017 Sprain of medial collateral ligament of left knee 03/01/2015 06/29/2017 documented as of this encounter (statuses as of 11/17/2018) Immunizations Name Administration Dates Next Due DTAP [...] of this encounter Last Filed Vital Signs Not on filedocumented in this encounter Progress Notes Shila Valles, PT - 11/17/2018 12:00 PM EDT [facility] Treatment Note Outpatient Physical Therapy Services [facility] [address] [place] [phone] Treatment Number: 13 Referring Physician: Denia Holbrook Primary Diagnosis: ICD-9-CM ICD-10-CM 1. Left anterior shoulder pain 719.41 M25.512 2. Rotator cuff tendinitis, left 726.10 M75.82 Time In: 1200 Time Out: 1230 Total Session Minutes: 30 Pain at Start of Care: 4/10 Pain at End of Care: 2/10 Subjective Comments: Was doing better but then the last 4 days have been sore. Not sure if becauseshe swam a lot while on vacation last week or back to work this week. Interventions: Therapeutic Exercises (74379) Patient Education/Home Exercise Program: see exercises below Number of Exercises?: 8 Total Minutes (all Therapeutic Exercise): 20 Exercise #1 Exercise Name: D2 flexion with red band Reason for Exercise: Strengthening Location/Body Area: Shoulder Sets/Reps: 15 Resistance: fatigued Exercise #3 Exercise Name: Wall slides Reason for Exercise: Strengthening Location/Body Area: Shoulder Sets/Reps: 10x Exercise #4 Exercise Name: UBE Reason for Exercise: Muscle Performance Location/Body Area: Bilateral;Shoulder Sets/Reps: 4 min Exercise #5 Exercise Name: Row, extension, fleixon punch with band Reason for Exercise: Strengthening Location/Body Area: Shoulder Sets/Reps: 15x Resistance: orange for ext, green for row Manual Therapy ([id number]) Soft Tissue Mobilization: Manual Tissue Mobilization Soft Tissue Mobilization Details: bicep tendon and mm belly, L upper trap PROM: L shoulder PROM PROM Details: all planes of motion Total Minutes (All Manual Therapy): 10 Assessment: Patient demonstrates excellent pROM and AROM. She feels a tugging at anterior shoulder through bicep tendon which is also tender to palpation. Clinically she tests fairly strong but with pain. Questionable as to labral involvement of the shoulder. Patient also reports ongoing difficulty in reaching lifting and carrying, reaching behind her back. Skilled Physical Therapy services are required to address ongoing functional and objective limitations/impairments including decrease scapular strength. Plan for Next Visit: Progress scapular strengthening in 2 weeks. Total UNTIMED Code Treatment Minutes: Total TIMED Code Treatment Minutes: 30 Total Treatment Minutes: 30 Author: Shila Valles, PT 11/17/2018 13:01 documented in this encounter Plan of Treatment Date Type Specialty Care Team Description 11/29/2018 Office Visit Orthopedics Yin Fontanez, RPA-C [address] [facility] [place] [address] 12/01/2018 Office Visit Physical Therapy Shila Valles, PT [address] [place] [address] Health Maintenance Due Date Last Done Comments PNEUMOCOCCAL 0-64 YRS (1 of - 08/18/2001 PPSV23) CHLAMYDIA SCREENING 05/29/2017 05/29/2016 DEPRESSION SCREENING 06/29/2018 06/29/2017 INFLUENZA VACCINE (#1) 2018 PAP SMEAR 05/30/2019 05/29/2016 HPV IMMUNIZATION SERIES Completed 11/10/2010, 10/25/2009, 10/23/2008 MENINGOCOCCAL VACCINE IMM Completed 01/10/2013 documented as of this encounter Results Not on filedocumented in this encounter Visit Diagnoses Diagnosis Left anterior shoulder pain - Primary Pain in joint, shoulder region Rotator cuff tendinitis, left documented in this encounter (Work) [id number] documented as of this encounter
[2019-01-09 09:29] VITALS: BP 114/70
--- NOTE | 2019-01-09 09:36 | UC ---
Complaint Female HPI - HPI Summary HPI Summary: This patient is a 23-year-old female who presents to the urgent care with chief complaint of having dysuria, urinary frequency and urgency but no hematuria. She denies any nausea or vomiting she denies any fevers or chills. She has some lower abdominal cramping last night. Last menstrual cycle was 3 weeks ago. She denies any back pain. - History Of Current Complaint Chief Complaint: UCGU Stated Complaint: UTI Time Seen by Provider: 01/09/19 09:05 Hx Obtained From: Patient Hx Last Menstrual Period: 3 weeks ago ?: No Onset/Duration: Gradual Onset Timing: Constant Severity Initially: Mild Severity Currently: Moderate Pain Intensity: 3 - Allergies/Home Medications Allergies/Adverse Reactions: Allergies Allergy/AdvReac Type Severity Reaction Status Date / Time azithromycin [From Zithromax] Allergy Rash Verified 01/09/19 08:53 iodine Allergy Rash Verified 01/09/19 08:53 latex Allergy Rash Verified 01/09/19 08:53 Home Medications: Home Medications Cyanocobalamin TAB* [Vitamin B12 TAB*] 500 mcg PO DAILY 01/09/19 [History Confirmed 01/09/19] Pnv No.95/Ferrous Fum/Folic AC [ Tablet] 1 tab PO DAILY 01/09/19 [ History Confirmed 01/09/19] PMH/Surg Hx/FS Hx/Imm Hx Previously Healthy: Yes - Surgical History Surgical History: Yes Surgery Procedure, Year, and Place: L hand 2017. L knee 2016 - Family History Known Family History: Positive: None, Other - Ovarian CA, Breast CA - Social History Alcohol Use: Rare Substance Use Type: None Smoking Status (MU): Never Smoked Tobacco - Immunization History Most Recent Influenza Vaccination: 2012 Most Recent Tetanus Shot: 2006 Most Recent Pneumonia Vaccination: 1997 Review of Systems All Other Systems Reviewed And Are Negative: Yes Constitutional: Positive: Negative Skin: Positive: Negative Eyes: Positive: Negative ENT: Positive: Negative Respiratory: Positive: Negative Cardiovascular: Positive: Negative Gastrointestinal: Positive: Negative Genitourinary: Positive: Dysuria, Frequency, Urgency Motor: Positive: Negative Neurovascular: Positive: Negative Musculoskeletal: Positive: Negative Neurological: Positive: Negative Psychological: Positive: Negative Is Patient Immunocompromised?: No Physical Exam - Summary Physical Exam Summary: VITAL SIGNS: Reviewed. GENERAL: Patient is a well developed and nourished female who is lying comfortably in the stretcher. Patient is not in any acute respiratory distress. HEAD AND FACE: No signs of trauma. No ecchymosis, hematomas or skull depressions. No sinus tenderness. EYES: PERRLA, EOMI x 2, No injected conjunctiva, no nystagmus. EARS: Hearing grossly intact. Ear canals and tympanic membranes are within normal limits. MOUTH: Oropharynx within normal limits. NECK: Supple, trachea is midline, no adenopathy, no JVD, no carotid bruit, no c- spine tenderness, neck with full ROM. CHEST: Symmetric, no tenderness at palpation LUNGS: Clear to auscultation bilaterally. No wheezing or crackles. CVS: Regular rate and rhythm, S1 and S2 present, no murmurs or gallops appreciated. ABDOMEN: Soft, non-tender. No signs of distention. No rebound no guarding, and no masses palpated. Bowel sounds are normal. No CVA tenderness EXTREMITIES: FROM in all major joints, no edema, no cyanosis or clubbing. NEURO: Alert and oriented x 3. No acute neurological deficits. Speech is normal and follows commands. SKIN: Dry and warm Vital Signs: Initial Vital Signs Temp 98.4 F 01/09/19 08:47 Pulse 92 01/09/19 08:47 Resp 14 01/09/19 08:47 BP 114/70 01/09/19 08:47 Pulse Ox 100 01/09/19 08:47 Complaint Female Dx - Course Course Of Treatment: Urinalysis is negative for UTI. However the patient has been taking nitrofurantoin for the last 5 days. Therefore he may be a false negative. Since the patient is symptomatic we will start the patient on ciprofloxacin. We will send urine for cultures. She was recommended to follow with the primary care physician the next 2 days. She was recommended to return to the emergency department if she develops any fevers, back pain, nausea and vomiting. She understands and agrees. - Differential Dx/Diagnosis Provider Diagnosis: Symptomatic urinary tract infection Discharge ED - Sign-Out/Discharge Documenting (check all that apply): Patient Departure All imaging exams completed and their final reports reviewed: No - Discharge Plan Condition: Stable Disposition: HOME Prescriptions: Ciprofloxacin TAB* [Cipro 250 MG Tab*] 250 mg PO BID #6 tab Patient Education Materials: Urinary Tract Infection in Women (ED) Referrals: Denia Holbrook MD [Primary Care Provider] - Additional Instructions: Take medications as instructed Increase your fluid intake F/U with PCP in the next 2-3 days Return to the UC if symptoms worse - Billing Disposition and Condition Condition: STABLE Disposition: Home
--- NOTE | 2019-01-10 11:53 | UC ---
- Progress Note Progress Note: No imaging studies to review. Course/Dx - Diagnoses Provider Diagnoses: Symptomatic urinary tract infection Discharge ED - Sign-Out/Discharge Documenting (check all that apply): Post-Discharge Follow Up All imaging exams completed and their final reports reviewed: No Studies - Discharge Plan Condition: Stable Disposition: HOME Prescriptions: Ciprofloxacin TAB* [Cipro 250 MG Tab*] 250 mg PO BID #6 tab Patient Education Materials: Urinary Tract Infection in Women (ED) Forms: *Work Release Referrals: Denia Holbrook MD [Primary Care Provider] - Additional Instructions: Take medications as instructed Increase your fluid intake F/U with PCP in the next 2-3 days Return to the UC if symptoms worse - Billing Disposition and Condition Condition: STABLE Disposition: Home
== END 2019-01-09 09:45 | disposition home or self-care (01) ==
LOC: UCEAST 08:44
DX: N39.0 Urinary tract infection, site not specified (principal); Z88.0 Allergy status to penicillin; Z91.09 Other allergy status, other than to drugs and biological substances; Z91.040 Latex allergy status
CPT/HCPCS: 81003; 84702; 87086; 99212; G0463

== ENCOUNTER 2020-04-10 14:15 | Inpatient (IN) ==
[2020-04-10] MEDS ORDERED: Lactated Ringers 1000 ml BAG 1,000 ML IV ONE (15:21)
[2020-04-10] MEDS ORDERED: Buffered Lidocaine 1% SYRIN 1 ml INTRADERM ONE (15:21)
[2020-04-10] MEDS ORDERED: Oxytocin in LR 20 UNITS/1,000 ML BAG IVPB SCH (16:00)
[2020-04-10 16:22] LABS: ABS Lymphocytes 1.9 10^3/ul (1.0-4.8); ABS Monocytes 0.8 10^3/ul (0-0.8); ABS Neutrophils 6.1 10^3/ul (1.5-7.7); Eosinophil % 0.3 %; Hematocrit 33 % (35-47); Hemoglobin 11.1 g/dL (12.0-16.0); Lymphocyte % 21.1 %; Mean Corpuscular HGB Conc 34 g/dL (31-36); Mean Corpuscular Hemoglobin 29 pg (27-31); Mean Corpuscular Volume 86 fL (80-97); Mean Platelet Volume 8.5 fL (7.4-10.4); Platelet Count 370 10^3/uL (150-450); Red Blood Count 3.81 10^6 /uL (3.70-4.87); Red Cell Distribution Width 13 % (10-15); White Blood Count 8.8 10^3/uL (3.5-10.8)
[2020-04-10 16:55] LABS: Urine Benzodiazepine Screen None Detected (None Detect); Urine Cannabinoids Screen None Detected (None Detect); Urine Opiates Screen None Detected (None Detect)
[2020-04-10] MEDS: Lactated Ringers 1000 ml BAG 1,000 ML IV SCH (16:58)
[2020-04-10] MEDS ORDERED: Penicillin G Potassium IV 5,000,000 UNITS in NS 0.9% 100 ml BAG 100 ML IVPB ONE (18:11)
[2020-04-10] MEDS: Penicillin G Potassium IV 3,000,000 UNITS in NS 0.9% 100 ml BAG 100 ML IVPB SCH ×2 (18:52→22:27)
[2020-04-10] MEDS ORDERED: Lactated Ringers 1000 ml BAG 1,000 ML IV SCH (19:00)
[2020-04-10] MEDS ORDERED: Calcium Carb (TUMS) 500 mg CHEW TAB ONE (21:28)
[2020-04-10] MEDS ORDERED: Calcium Carb (TUMS) 500 mg CHEW TAB PO PRN (21:30)
[2020-04-11] MEDS: Lactated Ringers 1000 ml BAG 1,000 ML IV SCH (02:51)
[2020-04-11] MEDS: Penicillin G Potassium IV 3,000,000 UNITS in NS 0.9% 100 ml BAG 100 ML IVPB SCH ×3 (02:51→10:30)
[2020-04-11] MEDS ORDERED: OBEPIDURAL 250 ML EPIDURAL ONE (08:53)
[2020-04-11] MEDS ORDERED: Bupivacaine 0.25% SDV PF 10 ML VIAL INJ ONE (09:01)
[2020-04-11] MEDS ORDERED: EPHEDrine (Pressors) 50 MG/ML VIAL IV PUSH PRN (09:39)
[2020-04-11] MEDS ORDERED: Lactated Ringers 1000 ml BAG 500 ML IV PRN (09:39)
[2020-04-11] MEDS ORDERED: Phenylephrine 40 mcg/mL 10mL (400mcg) SYRINGE IV PUSH PRN (09:39)
[2020-04-11] MEDS ORDERED: Sodium Citrate/Citric Acid LIQ 15 ML UDC PO PRN (09:39)
[2020-04-11] MEDS ORDERED: Lactated Ringers 1000 ml BAG 1,000 ML IV ONE (09:39)
[2020-04-11 09:53] LABS: Hematocrit 35 % (35-47); Hemoglobin 11.7 g/dL (12.0-16.0); Mean Corpuscular HGB Conc 33 g/dL (31-36); Mean Corpuscular Hemoglobin 28 pg (27-31); Mean Corpuscular Volume 85 fL (80-97); Mean Platelet Volume 8.1 fL (7.4-10.4); Platelet Count 367 10^3/uL (150-450); Red Blood Count 4.15 10^6 /uL (3.70-4.87); Red Cell Distribution Width 13 % (10-15); White Blood Count 10.4 10^3/uL (3.5-10.8)
[2020-04-11] MEDS ORDERED: Lactated Ringers 1000 ml BAG 1,000 ML IV SCH ×2 (10:00→14:00)
[2020-04-11] MEDS ORDERED: OBEPIDURAL 250 ML EPIDURAL SCH (10:00)
[2020-04-11 10:09] LABS: Albumin 3.3 g/dL (3.2-5.2); BUN/Creatinine Ratio 11.1 (8-20); Calcium 8.1 mg/dL (8.6-10.3); EGFR African American 167.8 (>60); EGFR Non-African American 138.7 (>60); Globulin 3.2 g/dL (2-4); Total Bilirubin 0.6 mg/dL (0.2-1.0); Total Protein 6.5 g/dL (6.4-8.9); Uric Acid 3.3 mg/dL (2.3-6.6)
[2020-04-11 10:12] LABS: Potassium 2.7 mmol/L (3.5-5.0)
[2020-04-11] MEDS ORDERED: Dibucaine 1% OINT 28.35 GM TUBE PR PRN (13:26)
[2020-04-11] MEDS ORDERED: Oxytocin in LR 20 UNITS/1,000 ML BAG IVPB SCH (14:00)
[2020-04-11] MEDS: Witch Hazel PAD JAR TOPICAL PRN (14:21)
[2020-04-11] MEDS: Potassium Chlor 20 meq TAB.ER PO SCH ×2 (18:39→20:39)
[2020-04-12 06:05] LABS: ABS Eosinophils 0.1 10^3/ul (0-0.6); ABS Lymphocytes 2.7 10^3/ul (1.0-4.8); ABS Monocytes 1.4 10^3/ul (0-0.8); ABS Neutrophils 8.5 10^3/ul (1.5-7.7); Eosinophil % 0.5 %; Hematocrit 25 % (35-47); Hemoglobin 8.2 g/dL (12.0-16.0); Lymphocyte % 21.6 %; Mean Corpuscular HGB Conc 33 g/dL (31-36); Mean Corpuscular Hemoglobin 29 pg (27-31); Mean Corpuscular Volume 86 fL (80-97); Mean Platelet Volume 8.2 fL (7.4-10.4); Platelet Count 295 10^3/uL (150-450); Red Blood Count 2.87 10^6 /uL (3.70-4.87); Red Cell Distribution Width 13 % (10-15); White Blood Count 12.6 10^3/uL (3.5-10.8)
[2020-04-12] MEDS: Potassium Chlor 20 meq TAB.ER PO SCH (08:21)
[2020-04-12 12:49] LABS: Albumin 2.6 g/dL (3.2-5.2); Albumin/Globulin Ratio 1.1 (1-3); BUN/Creatinine Ratio 11.5 (8-20); Calcium 8.1 mg/dL (8.6-10.3); EGFR African American 175.3 (>60); EGFR Non-African American 144.9 (>60); Globulin 2.4 g/dL (2-4); Total Bilirubin 0.2 mg/dL (0.2-1.0)
[2020-04-12] MEDS: Witch Hazel PAD JAR TOPICAL PRN (18:07)
[2020-04-13 06:28] LABS: Albumin 2.7 g/dL (3.2-5.2); Albumin/Globulin Ratio 1.1 (1-3); BUN/Creatinine Ratio 13.8 (8-20); EGFR African American 154.5 (>60); EGFR Non-African American 127.7 (>60); Globulin 2.4 g/dL (2-4); Potassium 3.9 mmol/L (3.5-5.0); Total Bilirubin 0.2 mg/dL (0.2-1.0); Total Protein 5.1 g/dL (6.4-8.9)
[2020-04-13 06:45] LABS: ABS Eosinophils 0.2 10^3/ul (0-0.6); ABS Lymphocytes 2.7 10^3/ul (1.0-4.8); ABS Monocytes 0.8 10^3/ul (0-0.8); ABS Neutrophils 5.2 10^3/ul (1.5-7.7); Eosinophil % 1.7 %; Hematocrit 26 % (35-47); Hemoglobin 8.5 g/dL (12.0-16.0); Lymphocyte % 30.7 %; Mean Corpuscular HGB Conc 33 g/dL (31-36); Mean Corpuscular Hemoglobin 28 pg (27-31); Mean Corpuscular Volume 86 fL (80-97); Mean Platelet Volume 8.3 fL (7.4-10.4); Platelet Count 350 10^3/uL (150-450); Red Blood Count 2.98 10^6 /uL (3.70-4.87); Red Cell Distribution Width 13 % (10-15); White Blood Count 8.9 10^3/uL (3.5-10.8)
[2020-04-13 08:51] VITALS: BP 124/83
== END 2020-04-13 12:26 | disposition home or self-care (01) | DRG 560 ==
LOC: MCHOBOUT 14:15 → MCHOB 15:28
PROVIDERS: ADMIT Midwife; ATTEND Midwife

== ENCOUNTER 2021-09-17 12:05 | Inpatient (IN) ==
[2021-09-17] MEDS ORDERED: Buffered Lidocaine 1% SYRIN 1 ml INTRADERM ONE (14:27)
[2021-09-17] MEDS ORDERED: Oxytocin in LR 20 UNITS/1,000 ML BAG IVPB SCH (15:00)
[2021-09-17] MEDS: Lactated Ringers 1000 ml BAG 1,000 ML IV ONE (15:35)
[2021-09-17 15:47] LABS: Urine Benzodiazepine Screen None Detected (None Detect); Urine Cannabinoids Screen None Detected (None Detect); Urine Opiates Screen None Detected (None Detect)
[2021-09-17 17:38] LABS: ABS Lymphocytes 2.3 10^3/ul (1.0-4.8); ABS Monocytes 0.7 10^3/ul (0-0.8); ABS Neutrophils 5.2 10^3/ul (1.5-7.7); Eosinophil % 0.3 %; Hematocrit 35 % (35-47); Hemoglobin 11.5 g/dL (12.0-16.0); Lymphocyte % 27.9 %; Mean Corpuscular HGB Conc 33 g/dL (31-36); Mean Corpuscular Hemoglobin 27 pg (27-31); Mean Corpuscular Volume 82 fL (80-97); Mean Platelet Volume 9.7 fL (7.4-10.4); Platelet Count 281 10^3/uL (150-450); Red Cell Distribution Width 14 % (10-15); White Blood Count 8.2 10^3/uL (3.5-10.8)
[2021-09-17] MEDS: Lactated Ringers 1000 ml BAG 1,000 ML IV SCH (18:43)
[2021-09-17] MEDS ORDERED: Ondansetron 4 mg VIAL 2 MG/ML 2 ml VIAL IV PRN (20:49)
[2021-09-17] MEDS ORDERED: Calcium Carb (TUMS) 500 mg CHEW TAB PO PRN (22:15)
[2021-09-17] MEDS ORDERED: Calcium Carb (TUMS) 500 mg CHEW TAB PO ONE (22:15)
[2021-09-17] MEDS ORDERED: miSOPROStol 100 mcg TAB PO ONE (23:15)
[2021-09-18] MEDS ORDERED: OBEPIDURAL (200 ML) 200 ML EPIDURAL ONE (03:41)
[2021-09-18] MEDS ORDERED: Lidocaine 1% w EPI 1:200,000 SDV 30 ML VIAL ONE (03:41)
[2021-09-18] MEDS ORDERED: Sodium Citrate/Citric Acid LIQ 15 ML UDC PO PRN (03:42)
[2021-09-18] MEDS ORDERED: Phenylephrine 40 mcg/mL 10mL (400mcg) SYRINGE IV PUSH PRN ×2 (03:42)
[2021-09-18] MEDS ORDERED: Lactated Ringers 1000 ml BAG 1,000 ML IV ONE (03:42)
[2021-09-18] MEDS: Lactated Ringers 1000 ml BAG 1,000 ML IV ONE (03:45)
[2021-09-18] MEDS ORDERED: Lactated Ringers 1000 ml BAG 1,000 ML IV SCH ×2 (04:00→17:00)
[2021-09-18] MEDS ORDERED: OBEPIDURAL (200 ML) 200 ML EPIDURAL SCH (04:00)
[2021-09-18] MEDS: Lactated Ringers 1000 ml BAG 1,000 ML IV SCH (04:47)
[2021-09-18 05:09] LABS: Urine Appearance Clear; Urine Bilirubin Negative (Negative); Urine Blood Negative (Negative); Urine Color Yellow; Urine Glucose Negative (Negative); Urine Ketones Negative (Negative); Urine Nitrite Negative (Negative); Urine Protein Negative (Negative); Urine Specific Gravity 1.008 (1.002-1.030); Urine Urobilinogen Negative (Negative)
[2021-09-18] MEDS ORDERED: Dibucaine 1% OINT 28.35 GM TUBE PR PRN (16:37)
[2021-09-18] MEDS ORDERED: Witch Hazel PAD JAR TOPICAL PRN (16:37)
[2021-09-18] MEDS ORDERED: Glycerin ADULT 2.4 gm SUPP PR PRN (16:37)
[2021-09-18] MEDS ORDERED: Oxytocin in LR 20 UNITS/1,000 ML BAG IVPB SCH (17:00)
[2021-09-18] MEDS ORDERED: Oxytocin in LR 20 UNITS/1,000 ML BAG IVPB ONE (18:05)
[2021-09-19 06:11] LABS: ABS Lymphocytes 2.6 10^3/ul (1.0-4.8); ABS Monocytes 0.9 10^3/ul (0-0.8); ABS Neutrophils 6.6 10^3/ul (1.5-7.7); Eosinophil % 0.4 %; Hematocrit 29 % (35-47); Hemoglobin 9.8 g/dL (12.0-16.0); Lymphocyte % 25.6 %; Mean Corpuscular HGB Conc 34 g/dL (31-36); Mean Corpuscular Hemoglobin 28 pg (27-31); Mean Corpuscular Volume 83 fL (80-97); Mean Platelet Volume 9.3 fL (7.4-10.4); Platelet Count 206 10^3/uL (150-450); Red Blood Count 3.55 10^6 /uL (3.70-4.87); Red Cell Distribution Width 14 % (10-15); White Blood Count 10.2 10^3/uL (3.5-10.8)
[2021-09-19 08:17] VITALS: BP 110/74
[2021-09-19] MEDS ORDERED: Varicella Virus Vaccine Live 0.5 ML VIAL SUBCUT ONE (09:00)
== END 2021-09-19 17:40 | disposition home or self-care (01) | DRG 560 ==
LOC: MCHOBOUT 12:05 → MCHOB 12:58
PROVIDERS: ADMIT Advanced Practice Midwife; ATTEND Midwife